=== PATIENT | female | born 1945 | race Caucasian/White ===

== ENCOUNTER → 2016-10-11 | Outpatient (CLI) | payer MEDICARE ==
--- NOTE | 2016-10-12 09:56 | XR ---
EXAMINATION TYPE: XR chest 2V DATE OF EXAM: 10/11/2016 10:46 AM COMPARISON: NONE INDICATION: Productive cough TECHNIQUE: Single frontal view of the chest is obtained. FINDINGS: The heart size is normal. The pulmonary vasculature is normal. The lungs are clear. IMPRESSION: 1. No acute pulmonary process.
== END | disposition home or self-care (01) ==
LOC: RADXRYALE 09:50
PROVIDERS: ATTEND Internal Medicine
DX: R05 Cough (principal)
CPT/HCPCS: 71020

== ENCOUNTER 2021-03-31 09:21 | Emergency (ER) | payer MEDICARE ==
[2021-03-31 09:29] VITALS: RESP 18
--- NOTE | 2021-03-31 10:24 | XR ---
Left foot and left ankle HISTORY: Trauma and pain 3 views of the left foot and 3 views left ankle submitted. There is a minimally displaced mid calcaneal fracture. Calcifications are present at the insertion of the Achilles tendon. No dislocation. There is soft tissue swelling. Bone mineralization is reduced. IMPRESSION: Calcaneal fracture.
--- NOTE | 2021-03-31 11:43 | XR ---
Lumbar spine HISTORY: Trauma and pain 3 views lumbar spine correlated prior exam the 2010 Levoscoliosis with rotatory component is again noted centered at approximately L1. Bone mineralizatio n is reduced. Lumbar vertebral bodies show preserved height with the exception of some mild anterior wedging at L3. There is multilevel spondylosis with loss of disc height at intervertebral levels. Scl erosis is present in the posterior elements of the lumbar spine. Apical scarring vascular calcificati ons are noted incidentally. IMPRESSION: Anterior wedge compression deformity suspected at L3, no apparent retropulsion. Degenerat emiliano disc disease, osteoporosis, facet arthropathy.
--- NOTE | 2021-03-31 11:47 | ED ---
Fall HPI - General Chief Complaint: Fall Stated Complaint: fall off ladder/ankle injury Time Seen by Provider: 03/31/21 09:31 Source: patient, RN notes reviewed Mode of arrival: wheelchair - History of Present Illness Initial Comments: Patient is a 75-year-old female that presents to emergency department complaining of left foot pain after jumping off a ladder approximately 3-4 steps up after became shaky. She notes this happened at 9:00 this morning. She notes her strength in her fingers up. She denied any back pain, saddle anesthesia, bladder or bowel incontinence or retention. She was otherwise a well-appearing 75-year-old female. She did have point tenderness to the bottom of her left foot. She denied any chest pain short of breath headache nausea vomiting wyatt rrhea constipation fever fatigue chills. - Related Data Home Medications Medication Instructions Recorded Confirmed Atorvastatin [Lipitor] 40 mg PO DAILY 03/31/21 03/31/21 Cyanocobalamin (Vitamin B-12) 1,000 mcg PO DAILY 03/31/21 03/31/21 [Vitamin B-12] FLUoxetine HCL [PROzac] 10 mg PO DAILY 03/31/21 03/31/21 Famotidine [Pepcid] 20 mg PO BID 03/31/21 03/31/21 Insulin Aspart [NovoLOG Flexpen] See Protocol SQ AC-TID 03/31/21 03/31/21 Insulin Glargine [Lantus Vial] 27 unit SQ HS 03/31/21 03/31/21 Vitamin E [Vitamin E (1000 Iu = 1,000 unit PO DAILY 03/31/21 03/31/21 450 MG)] metFORMIN HCL [Glucophage] 500 mg PO DAILY 03/31/21 03/31/21 sitaGLIPtin [Januvia] 100 mg PO DAILY 03/31/21 03/31/21 Allergies Allergy/AdvReac Type Severity Reaction Status Date / Time No Known Allergies Allergy Verified 03/31/21 12:24 Review of Systems ROS Statement: Those systems with pertinent positive or pertinent negative responses have been documented in the HPI. ROS Other: All systems not noted in ROS Statement are negative. Past Medical History Past Medical History: Diabetes Mellitus History of Any Multi-Drug Resistant Organisms: None Reported Additional Past Surgical History / Comment(s): eye Past Psychological History: No Psychological Hx Reported Smoking Status: Former smoker Past Alcohol Use History: Occasional Past Drug Use History: None Reported General Exam Limitations: no limitations General appearance: alert, in no apparent distress Head exam: Present: atraumatic, normocephalic, normal inspection Eye exam: Present: normal appearance, PERRL, EOMI. Absent: scleral icterus, conjunctival injection, periorbital swelling ENT exam: Present: normal exam, mucous membranes moist Neck exam: Present: normal inspection Respiratory exam: Present: normal lung sounds bilaterally. Absent: respiratory distress, wheezes, rales, rhonchi, stridor Cardiovascular Exam: Present: regular rate, normal rhythm, normal heart sounds. Absent: systolic murmur, diastolic murmur, rubs, gallop, clicks GI/Abdominal exam: Present: soft, normal bowel sounds. Absent: distended, tenderness, guarding, rebound, rigid Extremities exam: Present: normal inspection, full ROM, tenderness (To the plan tar aspect of the left heel.), normal capillary refill. Absent: pedal edema, joint swelling, calf tenderness Neurological exam: Present: alert, oriented X3 Psychiatric exam: Present: normal affect, normal mood Skin exam: Present: warm, dry, intact, normal color. Absent: rash Course Vital Signs 03/31/21 03/31/21 03/31/21 09:24 11:15 12:16 Temperature 98.5 F 98.3 F Pulse Rate 81 87 Respiratory 18 18 18 Rate Blood Pressure 133/69 140/85 O2 Sat by Pulse 99 99 Oximetry Procedures - Orthopedic Splinting/Casting Injury #1 Side: left Lower Extremity Injury Location: foot Lower Extremity Immobilizer: stirrup splint, Ish wrap, synthetic pre-padded splint Other Orthopedic Equipment: crutches Medical Decision Making - Medical Decision Making 75-year-old female complaining of left heel pain. X-ray of the left foot and ankle, 15 mg of Toradol ordered. Foot x-ray shows a displaced calcaneal fracture. Lumbar spine x-ray ordered, shows an L3 compression fracture. Orthopedist consulted states patient can be splinted and follow-up outpatient. Case discussed with Dr. Lebron, patient discharge home. - Radiology Data Radiology results: report reviewed, image reviewed Left foot and ankle x-ray: Calcaneal fracture. Lumbar spine x-ray: Anterior wedge compression deformity suspected L3. No apparent retropulsion. Degenerative disc disease osteoporosis and facet arthropathy. Disposition Clinical Impression: Fall, Left calcaneal fracture Disposition: HOME SELF-CARE Condition: Stable Instructions (If sedation given, give patient instructions): Fall Prevention for Older Adults (ED) Additional Instructions: Please return to the Emergency Department if symptoms worsen or any other concerns. Follow-up with primary care 1-2 days. Follow-up with orthopedist as possible. No weightbearing on left foot. Use crutches. Is patient prescribed a controlled substance at d/c from ED?: No Referrals: Xochitl Cee MD [Primary Care Provider] - 1-2 days Mikel Martinez MD [STAFF PHYSICIAN] - 1-2 days Time of Disposition: 12:39
[2021-03-31 12:16] VITALS: BP 140/85; PULSE 87; TEMP 98.3
== END 2021-03-31 13:00 | disposition home or self-care (01) ==
LOC: EC 09:21
DX: S92.002A Unspecified fracture of left calcaneus, initial encounter for closed fracture (principal); E11.9 Type 2 diabetes mellitus without complications; Z79.4 Long term (current) use of insulin; Z87.891 Personal history of nicotine dependence; Z79.899 Other long term (current) drug therapy; W11.XXXA Fall on and from ladder, initial encounter
CPT/HCPCS: 29515; 72100; 99283

== ENCOUNTER 2023-02-03 05:41 | Emergency (ER) | payer MEDICARE ==
[2023-02-03 05:50] VITALS: TEMP 98.3
--- NOTE | 2023-02-03 06:15 | ED ---
Extremity Problem HPI - General Chief complaint: Extremity Problem,Nontraumatic Stated complaint: Rt elbow Swollen Time Seen by Provider: 02/03/23 06:03 Source: patient, RN notes reviewed Mode of arrival: ambulatory Limitations: no limitations - History of Present Illness Initial comments: Patient is a pleasant 77-year-old female presenting to the emergency room with concerns regarding swelling to her right elbow which she noticed when she first awoke this morning and does not that has increased some since waking. She denies any redness, warmth or pain to the area. She denies any range of motion impairment. She denies any trauma or wounds. She reports that she was mowing her lawn yesterday and complained her lawnmower out which was excessive manual labor for her but she tolerated the activity well. She denies any swelling in any other location. She denies any other complaints or concerns at this time including any fevers or chills. She has a past medical history significant for insulin-dependent diabetes. - Related Data Home Medications Medication Instructions Recorded Confirmed Atorvastatin [Lipitor] 40 mg PO DAILY 03/31/21 03/31/21 Cyanocobalamin (Vitamin B-12) 1,000 mcg PO DAILY 03/31/21 03/31/21 [Vitamin B-12] FLUoxetine HCL [PROzac] 10 mg PO DAILY 03/31/21 03/31/21 Famotidine [Pepcid] 20 mg PO BID 03/31/21 03/31/21 Insulin Aspart [NovoLOG Flexpen] See Protocol SQ AC-TID 03/31/21 03/31/21 Insulin Glargine [Lantus Vial] 27 unit SQ HS 03/31/21 03/31/21 Vitamin E (Dl,Tocopheryl Acet) 1,000 unit PO DAILY 03/31/21 03/31/21 [Vitamin E (1000 Iu = 450 MG)] metFORMIN HCL [Glucophage] 500 mg PO DAILY 03/31/21 03/31/21 sitaGLIPtin [Januvia] 100 mg PO DAILY 03/31/21 03/31/21 Allergies Allergy/AdvReac Type Severity Reaction Status Date / Time No Known Allergies Allergy Verified 03/31/21 12:24 Review of Systems ROS Statement: Those systems with pertinent positive or pertinent negative responses have been documented in the HPI. ROS Other: All systems not noted in ROS Statement are negative. Past Medical History Past Medical History: Diabetes Mellitus History of Any Multi-Drug Resistant Organisms: None Reported Additional Past Surgical History / Comment(s): eye Past Psychological History: No Psychological Hx Reported Smoking Status: Former smoker Past Alcohol Use History: Occasional Past Drug Use History: None Reported General Exam Limitations: no limitations General appearance: alert, in no apparent distress Head exam: Present: atraumatic, normocephalic, normal inspection Eye exam: Present: normal appearance, PERRL, EOMI. Absent: scleral icterus, conjunctival injection, periorbital swelling ENT exam: Present: normal exam, mucous membranes moist Neck exam: Present: normal inspection, full ROM Respiratory exam: Absent: respiratory distress, accessory muscle use Cardiovascular Exam: Present: regular rate GI/Abdominal exam: Absent: distended Right Elbow exam: Present: full ROM, swelling. Absent: tenderness, abrasion, laceration, ecchymosis, deformity, crepitus, dislocation, erythema, pain w/ pronation/supination, tenderness over radial head Vascular: Present: radial pulse. Absent: vascular compromise Back exam: Present: normal inspection Neurological exam: Present: alert, oriented X3, CN II-XII intact Psychiatric exam: Present: normal affect, normal mood Skin exam: Present: warm, dry, intact, normal color. Absent: rash Course Vital Signs 02/03/23 05:47 Temperature 98.3 F Pulse Rate 81 Respiratory 16 Rate Blood Pressure 176/90 O2 Sat by Pulse 98 Oximetry Medical Decision Making - Medical Decision Making Was pt. sent in by a medical professional or institution (, PA, [employer]BER, urgent care, hospital, or care home...) When possible be specific @ -No Did you speak to anyone other than the patient for history (EMS, parent, family, police, friend...)? What history was obtained from this source @ -No Did you review nursing and triage notes (agree or disagree)? Why? @ -I reviewed and agree with nursing and triage notes Were old charts reviewed (outside hosp., previous admission, EMS record, old EKG, old radiological studies, urgent care reports/EKG's, care home records)? Report findings @ -No old charts were reviewed Differential Diagnosis (chest pain, altered mental status, abdominal pain women, abdominal pain men, vaginal bleeding, weakness, fever, dyspnea, syncope, headache, dizziness, GI bleed, back pain, seizure, CVA, palpatations, mental health, musculoskeletal)? @ -Differential Musculoskeletal Muscular strain, contusion, ligament sprain, fracture, arthritis, septic arthritis, bursitis, cellulitis, muscle spasm, nerve compression, DVT, arterial occlusion, herpes zoster, electrolyte abnormality, tumor.... This is not meant to be in all inclusive list EKG interpreted by me (3pts min.). @ -None done X-rays interpreted by me (1pt min.). @ -X-ray right elbow: Soft tissue swelling consistent with bursitis, no fracture or dislocation. CT interpreted by me (1pt min.). @ -None done U/S interpreted by me (1pt. min.). @ -None done What testing was considered but not performed or refused? (CT, X-rays, U/S, labs)? Why? @ -None What meds were considered but not given or refused? Why? @ -None Did you discuss the management of the patient with other professionals (professionals i.e. , PA, [employer], lab, RT, psych nurse, high school social science teacher, it sales consultant, teacher, operations officer, bottle caser)? Give summary @ -No Was smoking cessation discussed for >3mins.? @ -No Was critical care preformed (if so, how long)? @ -No Were there social determinants of health that impacted care today? How? (Homelessness, low income, unemployed, alcoholism, drug addiction, transportation, low edu. Level, literacy, decrease access to med. care, half-way, rehab)? @ -No Was there de-escalation of care discussed even if they declined (Discuss DNR or withdrawal of care, Hospice)? DNR status @ -No What co-morbidities impacted this encounter? (DM, HTN, Smoking, COPD, CAD, Cancer, CVA, ARF, Chemo, Hep., AIDS, mental health diagnosis, sleep apnea, morbid obesity)? @ -None Was patient admitted / discharged? Hospital course, mention meds given and route, prescriptions, significant lab abnormalities, going to OR and other pertinent info. @ -77-year-old female presenting to the emergency room with concerns regarding swelling to her right elbow. No redness, warmth, pain or range of motion impairment. No pain or evidence of infection, no indication for laboratory studies her medication administration. Will obtain x-ray to evaluate for injury given acute onset however high probability for reactive bursitis due to excessive activity yesterday. X-ray negative for fracture dislocation, soft tissue swelling consistent with olecranon bursistis. Patient advised of findings. Discussed signs and symptoms requiring reevaluation including development of redness, warmth, fevers, or no improvement in symptoms over the next 7-10 days. Encouraged follow-up with primary care provider, use of [id number] anti-inflammatories for pain as needed and application of ice. Questions and concerns answered. Return parameters the emergency room discussed. Will discharge home in stable condition with the use of [id number] anti- inflammatories for pain related to right elbow olecranon bursitis advising follow-up with primary care provider. Undiagnosed new problem with uncertain prognosis? @ -No Drug Therapy requiring intensive monitoring for toxicity (Heparin, Nitro, Insulin, Cardizem)? @ -No Were any procedures done? @ -No Diagnosis/symptom? @ -Right elbow olecranon bursitis Acute, or Chronic, or Acute on Chronic? @ -Acute Uncomplicated (without systemic symptoms) or Complicated (systemic symptoms)? @ -Uncomplicated Side effects of treatment? @ -No Exacerbation, Progression, or Severe Exacerbation? @ -No Poses a threat to life or bodily function? How? (Chest pain, [place], [place], pneumonia, PE, COPD, DKA, ARF, appy, cholecystitis, CVA, Diverticulitis, Homicidal, Suicidal, threat to staff... and all critical care pts) @ -No Case discussed with Dr. Schuler. - Radiology Data Radiology results: report reviewed, image reviewed Disposition Clinical Impression: Olecranon bursitis, right elbow Disposition: HOME SELF-CARE Condition: Stable Instructions (If sedation given, give patient instructions): Elbow Bursitis (ED) Additional Instructions: Utilize [id number] anti-inflammatory such as Motrin for pain. Application of ice may help reduce swelling. Please avoid excessive repetitive arm motions until bursitis has resolved. Please follow-up with your primary care provider. Please return to the Emergency Department if symptoms worsen or any other concerns. Is patient prescribed a controlled substance at d/c from ED?: No Referrals: Xochitl Cee MD [Primary Care Provider] - 1-2 days Time of Disposition: 07:11
--- NOTE | 2023-02-03 06:51 | XR ---
EXAMINATION TYPE: XR elbow complete RT DATE OF EXAM: 02/03/2023 6:30 AM INDICATION: Patient age:Female; 77 years old; Reason for study: swelling; PHH. COMPARISON: None TECHNIQUE: The right elbow was examined in AP, lateral, and oblique projections. FINDINGS: No acute fracture or dislocation. Posterior elbow soft tissue swelling. No evidence of justyna nt effusion is present. IMPRESSION: 1. No evidence of acute fracture. 2. Posterior elbow soft tissue swelling possibly related to bursitis. Correlate clinically.
[2023-02-03 07:25] VITALS: BP 164/105; PULSE 71; RESP 20
== END 2023-02-03 07:25 | disposition home or self-care (01) ==
LOC: EC 05:41
DX: M70.21 Olecranon bursitis, right elbow (principal); E11.9 Type 2 diabetes mellitus without complications; Z87.891 Personal history of nicotine dependence; Z79.4 Long term (current) use of insulin; Z79.84 Long term (current) use of oral hypoglycemic drugs
CPT/HCPCS: 99283

== ENCOUNTER → 2025-01-28 | Outpatient (CLI) | payer MEDICARE ==
--- NOTE | 2025-01-28 14:07 | CTL ---
EXAMINATION TYPE: CT Low Dose Lung DATE OF EXAM ORDERED: 01/28/2025 COMPARISON: Chest radiograph 10/12/2019 CLINICAL INDICATION: Female, 79 years old with history of Z87.891 PERSONAL HISTORY OF NICOTINE DEPEND E; PHH, personal tobacco use, Lung cancer screening, History of Smoking/tobacco use. TECHNIQUE: Low dose computed tomography scan was performed through the chest at 1 mm thick sections a nd reconstructed images in multiple planes at 1 mm and [address] DLP: 105.[address] CTDI: 2.4 mGy Automated exposure control for dose reduction was used. CT DIAGNOSTIC QUALITY: Satisfactory FINDINGS: Nodules: No clinically significant pulmonary nodule. LUNGS: COPD: Severity: None Fibrosis: Severity: None Lymph nodes: None Other findings: None RIGHT PLEURAL SPACE: Effusion: None Calcification: None Thickening: None Pneumothorax: None LEFT PLEURAL SPACE: Effusion: None Calcification: None Thickening: None Pneumothorax: None HEART: Heart Size: Mildly Enlarged Coronary Calcification: Mild to moderate Pericardial Effusion: None OTHER FINDINGS: Upper abdomen: Small hiatal hernia. Bony thorax: Mild dextrocurvature of the thoracic spine. Supraclavicular region: None Other: None IMPRESSION: No clinically significant pulmonary nodule. CT LUNG RAD AND CT CHEST RECOMMENDATION: Lung-Rad 1 Negative: Continue annual screening with LDCT in 12 months. S Modifier (other clinically significant findings): None [facility], , 01/28/2025 2:04 PM
--- NOTE | 2025-01-29 07:47 | MR ---
EXAMINATION TYPE: MR brain wo/w con DATE OF EXAM: 01/28/2025 2:22 PM COMPARISON: None. CLINICAL INDICATION: Female, 79 years old with history of R41.3,Z87.891 PERSONAL HISTORY OF NICOTINE DEPENDE; PHH, Memory loss TECHNIQUE: Multi planar, multi sequence imaging was performed through the brain including: T1, T2, In version recovery, susceptibility weighted imaging and gradient echo imaging and Diffusion weighted im aging. The patient was then given intravenous contrast and multi planar, T1 fat-saturation images wer e obtained. IV Contrast: 8.5 mL Gadobutrol FINDINGS: cerebral atrophy with proportional dilation of ventricular system. Diffusion-weighted imaging shows no evidence of restricted diffusion to suggest acute/subacute infarct. Intracranial arterial flow voi ds are maintained. Midline structures show no abnormality. Scattered foci of high T2 signal intensity are seen within the periventricular white matter. The susceptibility weighted images do not reveal a ny evidence for micro-hemorrhage. After administration of gadolinium, no abnormal enhancement is seen . The bone marrow signal is within normal limits. Paranasal sinuses and mastoid air cells: No significant paranasal sinus disease. Visualized orbits: Orbital contents are intact. IMPRESSION: 1. No evidence of intracranial mass, acute/subacute infarct, or abnormal enhancement. 2. Nonspecific white matter changes, likely related to small vessel ischemic disease. [facility], , 01/29/2025 7:45 AM
== END | disposition home or self-care (01) ==
LOC: RADCTMAIN 12:58
PROVIDERS: ATTEND Family Medicine
DX: Z12.2 Encounter for screening for malignant neoplasm of respiratory organs (principal); R90.82 White matter disease, unspecified; R41.3 Other amnesia; Z87.891 Personal history of nicotine dependence
CPT/HCPCS: 71271; 70553; A9585

== ENCOUNTER 2025-02-05 06:45 | Emergency (ER) | payer MEDICARE ==
[2025-02-05 07:20] LABS: Glucose,Whole Blood 211 mg/dL (70-110)
--- NOTE | 2025-02-05 07:30 | ED ---
General Adult HPI - General Chief complaint: Neck Pain/Injury Stated complaint: Neck Pain Time Seen by Provider: 02/05/25 07:05 Source: patient, RN notes reviewed Mode of arrival: ambulatory - History of Present Illness Initial comments: Patient is a 79-year-old female present to the emergency department with concerns with neck discomfort. Onset of symptoms was 1 week ago. Symptoms have continued. Patient has discomfort mostly with turning her neck. Patient has limited range of motion with turning her neck, more so to the right than the left. No trauma. No history of chronic neck problems. No headache or chest pain. - Related Data Home Medications Medication Instructions Recorded Confirmed Atorvastatin [Lipitor] 40 mg PO DAILY 03/31/21 03/31/21 Cyanocobalamin (Vitamin B-12) 1,000 mcg PO DAILY 03/31/21 03/31/21 [Vitamin B-12] FLUoxetine HCL [PROzac] 10 mg PO DAILY 03/31/21 03/31/21 Famotidine [Pepcid] 20 mg PO BID 03/31/21 03/31/21 Insulin Aspart [NovoLOG Flexpen] See Protocol SQ AC-TID 03/31/21 03/31/21 Insulin Glargine (Lantus) [Lantus 27 unit SQ HS 03/31/21 03/31/21 Vial] Vitamin E (Dl,Tocopheryl Acet) 1,000 unit PO DAILY 03/31/21 03/31/21 [Vitamin E (1000 Iu = 450 MG)] metFORMIN HCL [Glucophage] 500 mg PO DAILY 03/31/21 03/31/21 sitaGLIPtin [Januvia] 100 mg PO DAILY 03/31/21 03/31/21 Previous Rx's Medication Instructions Recorded Cyclobenzaprine [Flexeril] 10 mg PO TID PRN #12 tablet 02/05/25 Ibuprofen [Motrin] 600 mg PO Q8H PRN #15 tab 02/05/25 Allergies Allergy/AdvReac Type Severity Reaction Status Date / Time No Known Allergies Allergy Verified 02/05/25 06:51 Review of Systems ROS Statement: Those systems with pertinent positive or pertinent negative responses have been documented in the HPI. ROS Other: All systems not noted in ROS Statement are negative. Constitutional: Denies: fever Eyes: Denies: eye pain ENT: Denies: ear pain Respiratory: Denies: dyspnea Cardiovascular: Denies: chest pain Gastrointestinal: Denies: abdominal pain Musculoskeletal: Reports: as per HPI Past Medical History Past Medical History: Diabetes Mellitus History of Any Multi-Drug Resistant Organisms: None Reported Additional Past Surgical History / Comment(s): eye Past Psychological History: No Psychological Hx Reported Smoking Status: Former smoker Past Alcohol Use History: Occasional Past Drug Use History: None Reported General Exam Limitations: no limitations General appearance: alert, in no apparent distress Eye exam: Present: normal appearance Neck exam: Present: other (Mild diffuse tenderness with muscle spasm posteriorly. Limited range of motion, able to move approximately 20 degrees to the right, 45 degrees to the left.). Absent: full ROM Respiratory exam: Present: normal lung sounds bilaterally Cardiovascular Exam: Present: regular rate, normal rhythm Expanded Peripheral pulses: 2+: Radial (R), Radial (L) GI/Abdominal exam: Present: soft. Absent: tenderness Extremities exam: Present: normal inspection Neurological exam: Present: alert, CN II-XII intact. Absent: motor sensory deficit Expanded Sensory exam: Upper Extremity Light Touch: Normal Motor strength exam: RUE: 5, LUE: 5 Psychiatric exam: Present: normal affect, normal mood Skin exam: Present: normal color Course Vital Signs 02/05/25 06:46 Temperature 97.6 F Pulse Rate 97 Respiratory 20 Rate Blood Pressure 159/81 O2 Sat by Pulse 97 Oximetry Medical Decision Making - Medical Decision Making Was pt. sent in by a medical professional or institution ([facility], [facility], urgent care, hospital, or [facility]...) When possible be specific @ -No Did you speak to anyone other than the patient for history (EMS, parent, family, police, friend...)? What history was obtained from this source @ -No Did you review nursing and triage notes (agree or disagree)? Why? @ -I reviewed and agree with nursing and triage notes Were old charts reviewed (outside hosp., previous admission, EMS record, old EKG, old radiological studies, urgent care reports/EKG's, [facility] records)? Report findings @ -No old charts were reviewed Differential Diagnosis (chest pain, altered mental status, abdominal pain women, abdominal pain men, vaginal bleeding, weakness, fever, dyspnea, syncope, headache, dizziness, GI bleed, back pain, seizure, CVA, palpatations, mental health, musculoskeletal)? @ -Differential Musculoskeletal Muscular strain, contusion, ligament sprain, fracture, arthritis, septic arthritis, bursitis, cellulitis, muscle spasm, nerve compression, DVT, arterial occlusion, herpes zoster, electrolyte abnormality, tumor.... This is not meant to be in all inclusive list EKG interpreted by me (3pts min.). @ -As above X-rays interpreted by me (1pt min.). @ -Cervical spine x-rays without acute abnormality CT interpreted by me (1pt min.). @ -None done U/S interpreted by me (1pt. min.). @ -None done What testing was considered but not performed or refused? (CT, X-rays, U/S, labs)? Why? @ -None What meds were considered but not given or refused? Why? @ -None Did you discuss the management of the patient with other professionals (professionals i.e. , PA, [employer] ASSOCIATE, lab, RT, psych nurse, dialysis social worker, strategy planning consultant, teacher, forest fire control officer, keycase assembler)? Give summary @ -No Was smoking cessation discussed for >3mins.? @ -No Was critical care preformed (if so, how long)? @ -No Were there social determinants of health that impacted care today? How? (Homelessness, low income, unemployed, alcoholism, drug addiction, transportation, low edu. Level, literacy, decrease access to med. care, skilled nursing, rehab)? @ -No Was there de-escalation of care discussed even if they declined (Discuss DNR or withdrawal of care, Hospice)? DNR status @ -No What co-morbidities impacted this encounter? (DM, HTN, Smoking, COPD, CAD, Cancer, CVA, ARF, Chemo, Hep., AIDS, mental health diagnosis, sleep apnea, morbid obesity)? @ -None Was patient admitted / discharged? Hospital course, mention meds given and rout e, prescriptions, significant lab abnormalities, going to OR and other pertinent info. @ -Patient presents with neck discomfort that is musculoskeletal and worse with range of motion. Patient significantly improved with Toradol. Patient updated on results and need for follow-up. Prescriptions provided Undiagnosed new problem with uncertain prognosis? @ -No Drug Therapy requiring intensive monitoring for toxicity (Heparin, Nitro, Insulin, Cardizem)? @ -No Were any procedures done? @ -No Diagnosis/symptom? @ -Cervical strain Acute, or Chronic, or Acute on Chronic? @ -Acute Uncomplicated (without systemic symptoms) or Complicated (systemic symptoms)? @ -Default Side effects of treatment? @ -No Exacerbation, Progression, or Severe Exacerbation? @ -No Poses a threat to life or bodily function? How? (Chest pain, [place], [place], pneumonia, PE, COPD, DKA, ARF, appy, cholecystitis, CVA, Diverticulitis, Homicidal, Suicidal, threat to staff... and all critical care pts) @ -No - Lab Data Lab Results 02/05/25 Range/Units 07:18 POC Glucose (mg/dL) 211 H (70-110) mg/dL POC Glu Travel Accommodation Inspector ID Danie Siddiqi Disposition Clinical Impression: Strain of neck muscle Disposition: HOME SELF-CARE Condition: Stable Instructions (If sedation given, give patient instructions): Cervical Strain (ED) Additional Instructions: Prescription sent to pharmacy. Please do follow-up with your primary care physician in the next couple of days for recheck. Return for increased pain, weakness, worsening or changing symptoms or other concerns. Prescriptions: Cyclobenzaprine [Flexeril] 10 mg PO TID PRN #12 tablet PRN Reason: Pain Ibuprofen [Motrin] 600 mg PO Q8H PRN #15 tab PRN Reason: Pain Is patient prescribed a controlled substance at d/c from ED?: No Referrals: Suzette Friedman MD [Primary Care Provider] - 1-2 days Time of Disposition: 09:08
[2025-02-05] MEDS: KETOROLAC 15 MG/ML 1 ML VIAL IM STA (07:37)
--- NOTE | 2025-02-05 08:27 | XR ---
EXAMINATION TYPE: XR cervical spine comp DATE OF EXAM: 02/05/2025 8:11 AM COMPARISON: None. CLINICAL INDICATION: Female, 79 years old with history of pain, TECHNIQUE: Frontal, lateral, oblique, swimmers, and open mouth view of the cervical spine are obtaine d. FINDINGS: The cervical spine is visualized in its entirety from C1 thru the top of T1 level. It is s atisfactory in alignment without evidence of acute fracture or dislocation. The pre-vertebral soft t issue appears within normal limits. Moderate to severe degenerative disc disease with spondylosis C4- 5 and C5-6 and to a lesser extent C6-7. The C1-C2 articulation is unremarkable on the open mouth view . The oblique images are within normal limits. IMPRESSION: No acute fracture or dislocation is seen in the cervical spine.ICD 10 NO FRACTURE, INITI AL EVALUATION [facility], , 02/05/2025 8:25 AM
[2025-02-05 09:19] VITALS: BP 142/79; PULSE 86; RESP 18; TEMP 97.9
== END 2025-02-05 09:16 | disposition home or self-care (01) ==
LOC: EC 06:45
DX: S16.1XXA Strain of muscle, fascia and tendon at neck level, initial encounter (principal); Z87.891 Personal history of nicotine dependence; X58.XXXA Exposure to other specified factors, initial encounter
CPT/HCPCS: 36415; 72050; 99283; 96374; J1885